=== PATIENT | female | born 1980 | race Caucasian/White ===

== ENCOUNTER 2023-04-06 06:50 | Day surgery (SDC) | payer OTHER ==
[2023-04-06] VITALS (229 sets, daily range): BP systolic 79–160; BP diastolic 35–103
[~2023-04-06] VITALS: Ht 157.5 cm; Wt 62.0 kg
[2023-04-06 07:50] LABS: BASO% 0.7 % (0-3); EOS% 4.2 % (0-8); HEMATOCRIT 43.3 % (37.0-47.0); HEMOGLOBIN 13.9 g/dl (12.0-16.0); IMMATURE GRANULOCYTES 0.2 % (0.0-5.0); LYMPH% 39.3 % (15-41); MEAN CORPUSCULAR HGB 28.9 pG CALC (26.0-32.0); MEAN CORPUSCULAR HGB CONC 32.1 g/dL CAL (32.0-36.0); MONO% 10.2 % (2-13); NEUT# 2.62 thou/uL (2.00-7.15); NEUT% 45.4 % (42-76); RED BLOOD COUNT 4.81 mill/uL (4.20-5.60); RED CELL DISTRI WIDTH 13.6 % (11.5-15.5)
[2023-04-06 09:52] LABS: ALBUMIN 4.1 g/dL (3.2-5.0); ALKALINE PHOSPHATASE 75 u/l (38-126); ANION GAP 11 (6-22 (CALC)); BILIRUBIN, TOTAL 0.2 mg/dL (0.02-1.3); BUN 26 mg/dL (7-17); BUN/CREATININE RATIO 35 (12-20 (CALC)); CARBON DIOXIDE 29 mmol/l (22-30); CHLORIDE 103 mmol/l (95-108); CREATININE 0.8 mg/dL (0.5-1.0); GFR FOR AFR.AMER. > 60 ML/MIN (>=60 (CALC)); GFR OTHER RACES > 60 ML/MIN (>=60 (CALC)); POTASSIUM 4.7 mmol/l (3.5-5.1); SGOT/AST 24 u/l (14-36); SODIUM 138 mmol/l (137-146); TOTAL PROTEIN 6.8 g/dL (6.3-8.2)
[2023-04-06] MEDS ORDERED: NALTREXONE50 MG PO (15:46)
[2023-04-06] MEDS ORDERED: CLONIDINE0.1 MG PO (15:47)
[2023-04-06] MEDS ORDERED: KLONOPIN2 MG PO (15:47)
[2023-04-07 01:23] VITALS: BP 158/97
[2023-04-07 03:59] VITALS: BP 142/94
[2023-04-07 04:19] LABS: ALBUMIN 4.2 g/dL (3.2-5.0); ALKALINE PHOSPHATASE 98 u/l (38-126); BUN 11 mg/dL (7-17); BUN/CREATININE RATIO 19 (12-20 (CALC)); CARBON DIOXIDE 27 mmol/l (22-30); CHLORIDE 97 mmol/l (95-108); CREATININE 0.6 mg/dL (0.5-1.0); GFR FOR AFR.AMER. > 60 ML/MIN (>=60 (CALC)); GFR OTHER RACES > 60 ML/MIN (>=60 (CALC)); MAGNESIUM 1.8 mg/dL (1.6-2.3); SGOT/AST 28 u/l (14-36); SODIUM 132 mmol/l (137-146); TOTAL PROTEIN 7.3 g/dL (6.3-8.2)
[2023-04-07 04:20] LABS: ANION GAP 11 (6-22 (CALC)); BILIRUBIN, TOTAL 0.6 mg/dL (0.02-1.3); POTASSIUM 3.4 mmol/l (3.5-5.1)
[2023-04-07 08:00] VITALS: BP 142/94
[2023-04-07 12:06] VITALS: BP 142/94
[2023-04-07 16:00] VITALS: BP 142/94
== END 2023-04-07 17:35 | disposition home or self-care (01) | DRG 897 ==
LOC: ANR 06:50 → MS2 06:50 → ANR 08:00
PROVIDERS: ATTEND Anesthesiology Critical Care Medicine
DX: F11.20 Opioid dependence, uncomplicated (principal)
CPT/HCPCS: J2354; J3475